=== PATIENT | female | born 1965 | race Caucasian/White ===

== ENCOUNTER 2024-04-24 15:29 | Observation (INO) | payer OTHER ==
[2024-04-24 15:55] LABS: Absolute Neutrophil Ct (ANC) 5.05 x10^3/uL; BASOPHIL % 0.3 %; Basophil (Absolute #) 0.02 x10^3/uL; Eosinophil % 5.3 %; Eosinophil (Absolute #) 0.38 x10^3/uL; Hematocrit 38.7 %; Hemoglobin 12.5 g/dL; IMMATURE GRAN # 0.03 x10^3u/L; IMMATURE GRAN % 0.4 %; Lymphocyte (Absolute #) 1.07 x10^3/uL; Mean Corpuscular Hgb Concent. 32.3 g/dL; Mean Platelet Volume 10.5 fL; Monocytes % 8.4 %; Neutrophil % 70.6 %; Platelet Count 187 x10^3/uL; Red Blood Count 4.16 x10^6/uL; Red Cell Distribution Width 13.3 %; White Blood Count 7.2 x10^3/uL
[2024-04-24] MEDS ORDERED: Sterile H2O 10 ml IJ ONE (15:58)
[2024-04-24] MEDS ORDERED: solu-MEDROL ONE (15:59)
[2024-04-24] MEDS ORDERED: Zithromax 500 MG/ 250 ML NaCl Premix 500 MG/250 ML IVPB IV ONE (15:59)
[2024-04-24] MEDS ORDERED: Sodium Chloride 0.9% 1000 ML 1,000 ML ONE (15:59)
[2024-04-24] MEDS ORDERED: DUONEB 0.5-3 MG/3 ml Neb IH ONE (16:00)
[2024-04-24] MEDS: Sodium Chloride 0.9% 1000 ML 1,000 ML IV STA (16:01)
[2024-04-24] MEDS: DUONEB 0.5-3 MG/3 ml Neb IH ONE (16:01)
[2024-04-24] MEDS: solu-MEDROL 125 MG, Sterile H2O 10 ml 2 ML IV ONE (16:03)
[2024-04-24] MEDS: Zithromax 500 MG/ 250 ML NaCl Premix 500 MG/250 ML IVPB IV STA (16:11)
[2024-04-24 16:17] LABS: ANION GAP 14.2 MEQ/L; BILIRUBIN,TOTAL 0.4 mg/dL; Calcium 9.4 mg/dL; Creatinine 1 0.75 mg/dL; NT PRO BNPII 30.6 pg/mL; Potassium 3.6 mmol/L; Total Protein 6.8 g/dL
[2024-04-24 16:55] LABS: INFLUENZA A NEGATIVE (NEGATIVE); INFLUENZA B NEGATIVE (NEGATIVE); RESPIRATORY SYNCTIAL VIRUS NEGATIVE (NEGATIVE); SARS-CoV-2 Xpert Express NEGATIVE (NEGATIVE)
[2024-04-24] MEDS ORDERED: PROVENTIL 2.5 MG/3 ML NEB IH ONE (16:55)
[2024-04-24] MEDS: PROVENTIL 2.5 MG/3 ML NEB IH ONE (16:56)
--- NOTE | 2024-04-24 18:55 | ERPHSYRPT ---
- History of Present Illness Source: patient Exam Limitations: no limitations Patient Subjective Stated Complaint: Pt c/o of shortness of breath with a cough for 2 days Triage Nursing Assessment: Pt brought to the ER by family, hypertensive, denies pain, pulses normal, skin n/w/d, denies cardiac pain, cough with green/yellow thick sputum, doesn't appear to be in any distress Hx Influenza Vaccination/Date Given: No Hx Pneumococcal Vaccination/Date Given: No <NESHA STEPHENSON - Last Filed: 04/24/24 18:51> <KORY CHAVIRA - Last Filed: 04/24/24 20:35> - History of Present Illness Time Seen by Provider: 04/24/24 15:32 Physician History: Patient is here with shortness of breath and cough for the past 2 days. Patient did recently drive here from [place]. She is here visiting family for Thanksgiving. States that she is having a productive cough, states that it is phlegm. Feels more short of breath. States that it all feels left-sided. Patient is taking PO well. Same number of urinations and defecations. The p atient has no signs of altered mental status, nuchal rigidity, signs of meningitis. The patient is up-to-date on all vaccinations. (NESHA STEPHENSON) Allergies/Adverse Reactions: No Known Drug Allergies Allergy (Verified 04/24/24 15:40) Home Medications: Azelastine HCl 1 spray NS DAILY 04/24/24 [History] Escitalopram Oxalate [Lexapro] 10 mg PO DAILY 04/24/24 [History] Lisinopril 10 mg [Zestril 10 MG] 10 mg PO DAILY 04/24/24 [History] Metformin HCl 500 mg [Glucophage 500 MG] 500 mg PO BIDWM 04/24/24 [History ] Omeprazole 20 mg PO DAILY 04/24/24 [History] Rosuvastatin Calcium 20 mg PO HS 04/24/24 [History] Travel Risk - International Travel Have you traveled outside of the country in past 3 weeks: No - Emerging Infectious Disease Are you exhibiting symptoms associated with any current EIDs: Yes Symptoms: Cough: New Onset, Shortness of Breath <NESHA STEPHENSON - Last Filed: 04/24/24 18:51> - Past Medical History Pertinent Past Medical History: Yes Cardiac History: High Cholesterol, Hypertension Respiratory History: Asthma Endocrine Medical History: Diabetes Type II Musculoskeletal History: Fractures GI Medical History: GERD Psycho-Social History: Anxiety Other Medical History: BROKEN ARM - Past Surgical History Past Surgical History: Yes Musculoskeletal: Orthopedic Surgery Female Surgical History: Hysterectomy Other Surgical History: BART KNEE REPLACEMENT, FOOT - Social History Smoking Status: Never smoker Exposure to second hand smoke: No Drug Use: none - Social Determinants of Health Will the patient participate in the screening: Yes Do you worry about a steady place to live?: No Do you have any problems with any of the following?: No known problems In the past 12 months,have you had to go without utilities?: No Transportation Issues: No Has anyone in your support network made you feel unsafe?: No Have you or anyone in your house had to go without enough: No <NESHA STEPHENSON - Last Filed: 04/24/24 18:51> - Physical Exam SpO2 Interpretation: normal SpO2: 94 <NESHA STEPHENSON - Last Filed: 04/24/24 18:51> - Nursing Vital Signs Nursing Vital Signs: Initial Vital Signs Pulse Rate 87 04/24/24 15:30 Respiratory Rate 16 04/24/24 15:30 Blood Pressure 162/98 04/24/24 15:30 O2 Sat by Pulse Oximetry 91 L 04/24/24 15:30 Pain Scale Pain Intensity 0 - Physical Exam Comments: 04/24/24 18:51 Review of Systems Constitutional: Negative for fever. HENT: Negative for congestion. Respiratory: Shortness of breath Cardiovascular: Left-sided chest pain Gastrointestinal: Negative for abdominal pain. Genitourinary: Negative for dysuria. Musculoskeletal: Negative for back pain. Skin: Negative for rash. Neurological: Negative for headaches. Psychiatric/Behavioral: Negative for behavioral problems. All other systems reviewed and are negative. Physical Exam Vitals signs and nursing note reviewed. Constitutional: Appearance: Patient is well-developed. HENT: Head: Normocephalic and atraumatic. Eyes: Conjunctiva/sclera: Conjunctivae normal. Neck: Musculoskeletal: Normal range of motion. Trachea: No tracheal deviation. Cardiovascular: Rate and Rhythm: Normal rate. Pulmonary: Effort: Wheezes throughout, left-sided crackles Abdominal: Palpations: Abdomen is soft. Musculoskeletal: General: No deformity. Skin: General: Skin is warm and dry. Neurological/ Psychiatric: Mental Status: Mental status, behavior, interaction with environment is appropriate for patient's age and condition (NESHA STEPHENSON) - Course Nursing assessment & vital signs reviewed: Yes EKG Interpreted by Me: Sinus Rhythm (Sinus rhythm, rate of 91, CO interval 143, QRS 96, QTc is 423) <NESHA STEPHENSON - Last Filed: 04/24/24 18:51> Ordered Tests: Active Orders 24 hr Category Date Time Status EKG-ER Only STAT Care 04/24/24 15:40 Active IV Insertion STAT Care 04/24/24 15:40 Active Oxygen-ED Only Nasal Cannula 2 lpm Care 04/24/24 19:31 Active CHEST 1 VIEW (PORTABLE) Stat Exams 04/24/24 15:41 Incomplete CHEST 2 VIEWS (PA AND LAT) Stat Exams 04/24/24 16:42 Taken CHEST WITH CONTRAST [CT] Stat Exams 04/24/24 18:23 Taken CBC W DIFF Stat Lab 04/24/24 15:50 Completed CMP Stat Lab 04/24/24 15:50 Completed NT PRO BNPII Stat Lab 04/24/24 15:50 Completed TROPONIN Q4H Lab 04/24/24 15:50 Completed TROPONIN Q4H Lab 04/24/24 19:20 Completed TROPONIN Q4H Lab 04/24/24 23:45 Ordered Respiratory Therapy Assessment DAILY RT 04/24/24 16:04 Active Medication Summary Discontinued Medications Generic Name Dose Route Start Last Admin Trade Name Freq PRN Reason Stop Dose Admin Albuterol Sulfate 2.5 mg 04/24/24 16:55 04/24/24 16:56 Albuterol Sulfate 2.5 Mg/3 Ml Neb IH 04/24/24 16:56 2.5 mg STAT ONE Administration Albuterol Sulfate Confirm 04/24/24 16:55 Albuterol Sulfate 2.5 Mg/3 Ml Neb Administered 04/24/24 16:56 Dose 2.5 mg IH .STK-MED ONE Albuterol/Ipratropium 3 ml 04/24/24 15:40 04/24/24 16:01 Ipratropium/Albuterol Sulfate 3 Ml Ampul.Neb IH 04/24/24 15:41 3 ml STAT ONE Administration Albuterol/Ipratropium Confirm 04/24/24 16:00 Ipratropium/Albuterol Sulfate 3 Ml Ampul.Neb Administered 04/24/24 16:01 Dose 3 ml IH .STK-MED ONE Methylprednisolone Sodium 0 mg 04/24/24 15:40 04/24/24 16:03 Succinate 125 mg/ Sterile IV 04/24/24 15:41 125 mg Water 2 ml STAT ONE Administration Sodium Chloride 1,000 mls @ 999 mls/hr 04/24/24 15:40 04/24/24 18:42 Sodium Chloride 0.9% 1000 Ml IV 04/24/24 16:40 Infused .Q1H1M STA Infusion Azithromycin 500 mg in 250 mls @ 250 mls/hr 04/24/24 15:40 04/24/24 18:42 Zithromax 500 Mg/ 250 Ml Nacl Premix IV 04/24/24 16:39 Infused STAT STA Infusion Azithromycin Confirm 04/24/24 15:59 Zithromax 500 Mg/ 250 Ml Nacl Premix Administered 04/24/24 16:00 Dose 500 mg in 250 mls @ ud IV .STK-MED ONE Sodium Chloride Confirm 04/24/24 15:59 Sodium Chloride 0.9% 1000 Ml Administered 04/24/24 16:00 Dose 1,000 mls @ ud .ROUTE .STK-MED ONE Methylprednisolone Sodium Succinate Confirm 04/24/24 15:59 Methylprednis Sod Succ 125 Mg/2 Ml Vial Administered 04/24/24 16:00 Dose 125 mg .ROUTE .STK-MED ONE Sterile Water Confirm 04/24/24 15:58 Water For Injection,Sterile 10 Ml Vial Administered 04/24/24 15:59 Dose 10 ml IJ .STK-MED ONE Lab/Rad Data: Laboratory Result Diagrams 04/24/24 15:50 04/24/24 15:50 Laboratory Results 04/24/24 04/24/24 04/24/24 Range/Units 19:20 15:52 15:50 WBC x10^3/uL RBC x10^6/uL Hgb g/dL Hct % MCV fL MCH pg MCHC g/dL RDW % Plt Count x10^3/uL MPV fL Gran % % Immature Gran % (Auto) % Nucleat RBC Rel Count % Eos # (Auto) x10^3/uL Immature Gran # (Auto) x10^3u/L Absolute Lymphs (auto) x10^3/uL Absolute Monos (auto) x10^3/uL Absolute Nucleated RBC x10^3u/L Lymphocytes % % Monocytes % % Eosinophils % % Basophils % % Absolute Granulocytes x10^3/uL Basophils # x10^3/uL Sodium (135 - 145) mmol/L Potassium (3.5 - 5.1) mmol/L Chloride (98 - 107) mmol/L Carbon Dioxide (22 - 30) mmol/L Anion Gap (5 - 15) MEQ/L BUN (7 - 17) mg/dL Creatinine (0.52 - 1.04) mg/dL Estimated GFR ML/MIN Glucose (74 - 106) mg/dL Calcium (8.4 - 10.2) mg/dL Total Bilirubin (0.2 - 1.3) mg/dL AST (14 - 36) U/L ALT (0 - 35) U/L Alkaline Phosphatase (38 - 126) U/L Troponin I < 0.012 < 0.012 ng/mL NT-Pro-B Natriuret Pep pg/mL Serum Total Protein (6.3 - 8.2) g/dL Albumin (3.5 - 5.0) g/dL Influenza Type A Ag NEGATIVE (NEGATIVE) Influenza Type B Ag NEGATIVE (NEGATIVE) RSV (PCR) NEGATIVE (NEGATIVE) SARS-CoV-2 (PCR) NEGATIVE (NEGATIVE) 04/24/24 04/24/24 Range/Units 15:50 15:50 WBC 7.2 x10^3/uL RBC 4.16 x10^6/uL Hgb 12.5 g/dL Hct 38.7 % MCV 93.0 fL MCH 30.0 pg MCHC 32.3 g/dL RDW 13.3 % Plt Count 187 x10^3/uL MPV 10.5 fL Gran % 70.6 % Immature Gran % (Auto) 0.4 % Nucleat RBC Rel Count 0.0 % Eos # (Auto) 0.38 x10^3/uL Immature Gran # (Auto) 0.03 x10^3u/L Absolute Lymphs (auto) 1.07 x10^3/uL Absolute Monos (auto) 0.60 x10^3/uL Absolute Nucleated RBC 0.00 x10^3u/L Lymphocytes % 15.0 % Monocytes % 8.4 % Eosinophils % 5.3 % Basophils % 0.3 % Absolute Granulocytes 5.05 x10^3/uL Basophils # 0.02 x10^3/uL Sodium 142 (135 - 145) mmol/L Potassium 3.6 (3.5 - 5.1) mmol/L Chloride 108 (98 - 107) mmol/L Carbon Dioxide 24 (22 - 30) mmol/L Anion Gap 14.2 (5 - 15) MEQ/L BUN 18 (7 - 17) mg/dL Creatinine 0.75 (0.52 - 1.04) mg/dL Estimated GFR 93.0 ML/MIN Glucose 148 (74 - 106) mg/dL Calcium 9.4 (8.4 - 10.2) mg/dL Total Bilirubin 0.40 (0.2 - 1.3) mg/dL AST 28 (14 - 36) U/L ALT 45 (0 - 35) U/L Alkaline Phosphatase 87 (38 - 126) U/L Troponin I ng/mL NT-Pro-B Natriuret Pep 30.6 pg/mL Serum Total Protein 6.8 (6.3 - 8.2) g/dL Albumin 4.0 (3.5 - 5.0) g/dL Influenza Type A Ag (NEGATIVE) Influenza Type B Ag (NEGATIVE) RSV (PCR) (NEGATIVE) SARS-CoV-2 (PCR) (NEGATIVE) - Progress Progress: improved Discussed with : Other (Dr. Orta) Will see patient in: hospital (full admit) Counseled pt/family regarding: lab results, diagnosis, need for follow-up, rad results <NESHA STEPHENSON - Last Filed: 04/24/24 18:51> <KORY CHAVIRA - Last Filed: 04/24/24 20:35> - Progress Progress Note: 04/24/24 18:52 Differential diagnosis includes: PNA, STEMI, NSTEMI, other infection, musculoskeletal pain, pneumothorax - We'll obtain basic labs, fluids, EKG, troponin, chest x-ray - EKG shows no ST changes - my read - O2 saturations did drop to 91%. Placed on 2 L. - CXR demonstrates left-sided pneumonia on my read Patient most likely needs to be admitted for left-sided pneumonia, dropping her O2 sats. Patient has received azithromycin, 2 breathing treatments, steroids. I did discuss over the phone with on-call physician, Dr. Orta. She did accept the patient to her service. However she is concerned the patient did not have an elevated white blood cell count and had recently drove from [place]. Therefore she did request a CTA prior to admission. I feel this is very reasonable. CTA currently pending. Transfer of care to Dr. Chavira at 7 PM. He will follow-up on CTA. He will place bed request after this if normal. Otherwise he will treat appropriately based on results of CTA. (NESHA STEPHENSON) 04/24/24 20:31 This patient underwent a CT scan of the chest with contrast arrives to follow-up with per Dr. Stephenson. The CT scan of the chest with contrast was interpreted by the radiologist. The impression states poor opacification limits pulmonary embolism exam. No obvious central pulmonary emboli present. Lingular pneumonia without effusion is present. There is evidence of fatty liver. (KORY CHAVIRA) Medical Desision Making - Discussion of managment Care discussed with:: hospitalist (Per Dr. Stephenson he had already spoken to the hospitalist and the hospitalist accepts admission but wanted a CT scan of the chest performed) Agreed on:: decision to admit Will see patient: in hospital - Diagnostic Testing Diagnostic test were ordered, analyzed, and reviewed by me: Yes Radiological Interpretation: Reviewed by me, Teleradiologist Report - Risk of complications The pt has a high risk of morbidity or mortality based on: Decision regarding hospitilization or escalation of hosp level of care <KORY CHAVIRA - Last Filed: 04/24/24 20:35> - Departure Departure Disposition: Observation Critical Care Time: No <NESHA STEPHENSON - Last Filed: 04/24/24 18:51> - Departure Departure Disposition: Observation Critical Care Time: No <KORY CHAVIRA - Last Filed: 04/24/24 20:35> - Departure Clinical Impression: Community acquired pneumonia Condition: Stable Referrals: DOCTOR,NO FAMILY [Primary Care Provider] - Follow up/PCP as directed
[2024-04-24] MEDS: PROVENTIL 2.5 MG/3 ML NEB IH PRN (21:24)
--- NOTE | 2024-04-24 21:43 | PCM.HP ---
History of Present Illness - Chief Complaint Chief Complaint: pneumonia History of Present Illness: is a 58 year old female with PMH of HTN, asthma who presents with few days of malaise, cough, congestion, runny nose. 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 States her cough has continued to get worse with increased WOB. No fever, chest pain, nausea, vomiting, diarrhea. In the ED, CXR was c/f developing left sided PNA, CTA negative for PE. RVP was negative. - Review of Systems Constitutional: No Fever, No Chills Eyes: No Symptoms Ears, Nose, & Throat: No Symptoms Respiratory: No Cough, No Short Of Breath Cardiac: No Chest Pain, No Edema, No Syncope Abdominal/Gastrointestinal: No Abdominal Pain, No Nausea, No Vomiting, No Diarrhea Genitourinary Symptoms: No Dysuria Musculoskeletal: No Back Pain, No Neck Pain Skin: No Rash Neurological: No Dizziness, No Focal Weakness, No Sensory Changes Psychological: No Symptoms Endocrine: No Symptoms Hematologic/Lymphatic: No Symptoms Immunological/Allergic: No Symptoms Medications & Allergies Home Medications: Home Medication List Azelastine HCl 1 spray NS DAILY 04/24/24 [History Confirmed 04/24/24] Escitalopram Oxalate [Lexapro] 10 mg PO DAILY 04/24/24 [History Confirmed 04/24/24] Lisinopril 10 mg [Zestril 10 MG] 10 mg PO DAILY 04/24/24 [History Confirmed 04/24/24] Metformin HCl 500 mg [Glucophage 500 MG] 500 mg PO BIDWM 04/24/24 [History Confirmed 04/24/24] Omeprazole 20 mg PO DAILY 04/24/24 [History Confirmed 04/24/24] Rosuvastatin Calcium 20 mg PO HS 04/24/24 [History Confirmed 04/24/24] Allergies/Adverse Reactions: Allergies Allergy/AdvReac Type Severity Reaction Status Date / Time No Known Drug Allergies Allergy Verified 04/24/24 15:40 - Past Medical History Past Medical History: Yes Cardiac History: High Cholesterol, Hypertension Respiratory History: Asthma Endocrine Medical History: Diabetes Type II Musculoskelatal History: Fractures GI Medical History: GERD Pyscho-Social History: Anxiety Comment: BROKEN ARM - Past Surgical History Past Surgical History: Yes Musculskeletal Surgical Hx: Orthopedic Surgery Female Surgical History: Hysterectomy Other Surgical History: BART KNEE REPLACEMENT, FOOT - Social History Smoking Status: Never smoker Exposure to second hand smoke: No Alcohol: Weekly Drug Use: none - Social Determinants of Health Will the patient participate in the screening: Yes Do you worry about a steady place to live?: No Do you have any problems with any of the following?: No known problems In the past 12 months,have you had to go without utilities?: No Have you or anyone in your house had to go without enough: No Transportation Issues: No Has anyone in your support network made you feel unsafe?: No Does the patient want assistance with any of the above?: No - Physical Exam Vital Signs: Vital Signs - 24 hr Temp Pulse Resp BP BP Pulse Ox 04/24/24 21:24 85 18 97 04/24/24 20:50 98.2 F 88 16 160/84 95 04/24/24 20:30 82 140/87 90 L 04/24/24 20:00 88 151/85 91 L 04/24/24 19:30 95 H 159/107 95 04/24/24 18:54 94 L 04/24/24 18:30 88 21 155/85 94 L 04/24/24 18:00 87 22 155/85 92 L 04/24/24 17:30 91 H 18 161/91 93 L 04/24/24 17:23 88 10 L 159/93 94 L 04/24/24 17:00 83 21 151/91 99 04/24/24 16:59 85 20 97 04/24/24 16:05 95 22 94 04/24/24 16:00 85 21 145/96 91 L 04/24/24 15:33 97.7 F 106 20 162/98 93 04/24/24 15:30 87 16 162/98 91 L General Appearance: no apparent distress, alert Neurologic Exam: alert, oriented x 3, cooperative, normal mood/affect, nml cerebellar function, nml station & gait, sensation nml, No motor deficits Eye Exam: PERRL/EOMI, eyes nml inspection Ears, Nose, Throat Exam: normal ENT inspection, TMs normal, pharynx normal, moist mucous membranes Neck Exam: normal inspection, non-tender, supple, full range of motion Respiratory Exam: normal breath sounds, lungs clear, No respiratory distress Cardiovascular Exam: regular rate/rhythm, normal heart sounds, normal peripheral pulses Gastrointestinal/Abdomen Exam: soft, normal bowel sounds, No tenderness, No mass Back Exam: normal inspection, normal range of motion, No CVA tenderness, No vertebral tenderness Extremity Exam: normal inspection, normal range of motion, pelvis stable Skin Exam: normal color, warm, dry, No rash Lymphatic Exam: No adenopathy Results - Labs Lab/Micro Results: Lab Results-Last 24 Hours 04/24/24 04/24/24 04/24/24 Range/Units 15:50 15:50 15:50 WBC 7.2 x10^3/uL RBC 4.16 x10^6/uL Hgb 12.5 g/dL Hct 38.7 % MCV 93.0 fL MCH 30.0 pg MCHC 32.3 g/dL RDW 13.3 % Plt Count 187 x10^3/uL MPV 10.5 fL Gran % 70.6 % Immature Gran % (Auto) 0.4 % Nucleat RBC Rel Count 0.0 % Eos # (Auto) 0.38 x10^3/uL Immature Gran # (Auto) 0.03 x10^3u/L Absolute Lymphs (auto) 1.07 x10^3/uL Absolute Monos (auto) 0.60 x10^3/uL Absolute Nucleated RBC 0.00 x10^3u/L Lymphocytes % 15.0 % Monocytes % 8.4 % Eosinophils % 5.3 % Basophils % 0.3 % Absolute Granulocytes 5.05 x10^3/uL Basophils # 0.02 x10^3/uL Sodium 142 (135 - 145) mmol/L Potassium 3.6 (3.5 - 5.1) mmol/L Chloride 108 (98 - 107) mmol/L Carbon Dioxide 24 (22 - 30) mmol/L Anion Gap 14.2 (5 - 15) MEQ/L BUN 18 (7 - 17) mg/dL Creatinine 0.75 (0.52 - 1.04) mg/dL Estimated GFR 93.0 ML/MIN Glucose 148 (74 - 106) mg/dL Calcium 9.4 (8.4 - 10.2) mg/dL Total Bilirubin 0.40 (0.2 - 1.3) mg/dL AST 28 (14 - 36) U/L ALT 45 (0 - 35) U/L Alkaline Phosphatase 87 (38 - 126) U/L Troponin I < 0.012 ng/mL NT-Pro-B Natriuret Pep 30.6 pg/mL Serum Total Protein 6.8 (6.3 - 8.2) g/dL Albumin 4.0 (3.5 - 5.0) g/dL Influenza Type A Ag (NEGATIVE) Influenza Type B Ag (NEGATIVE) RSV (PCR) (NEGATIVE) SARS-CoV-2 (PCR) (NEGATIVE) 04/24/24 04/24/24 Range/Units 15:52 19:20 WBC x10^3/uL RBC x10^6/uL Hgb g/dL Hct % MCV fL MCH pg MCHC g/dL RDW % Plt Count x10^3/uL MPV fL Gran % % Immature Gran % (Auto) % Nucleat RBC Rel Count % Eos # (Auto) x10^3/uL Immature Gran # (Auto) x10^3u/L Absolute Lymphs (auto) x10^3/uL Absolute Monos (auto) x10^3/uL Absolute Nucleated RBC x10^3u/L Lymphocytes % % Monocytes % % Eosinophils % % Basophils % % Absolute Granulocytes x10^3/uL Basophils # x10^3/uL Sodium (135 - 145) mmol/L Potassium (3.5 - 5.1) mmol/L Chloride (98 - 107) mmol/L Carbon Dioxide (22 - 30) mmol/L Anion Gap (5 - 15) MEQ/L BUN (7 - 17) mg/dL Creatinine (0.52 - 1.04) mg/dL Estimated GFR ML/MIN Glucose (74 - 106) mg/dL Calcium (8.4 - 10.2) mg/dL Total Bilirubin (0.2 - 1.3) mg/dL AST (14 - 36) U/L ALT (0 - 35) U/L Alkaline Phosphatase (38 - 126) U/L Troponin I < 0.012 ng/mL NT-Pro-B Natriuret Pep pg/mL Serum Total Protein (6.3 - 8.2) g/dL Albumin (3.5 - 5.0) g/dL Influenza Type A Ag NEGATIVE (NEGATIVE) Influenza Type B Ag NEGATIVE (NEGATIVE) RSV (PCR) NEGATIVE (NEGATIVE) SARS-CoV-2 (PCR) NEGATIVE (NEGATIVE) - Radiology Impressions Radiology Exams & Impressions: Radiology Procedures Category Date Time Status CHEST 1 VIEW (PORTABLE) Stat Exams 04/24/24 15:41 Incomplete CHEST 2 VIEWS (PA AND LAT) Stat Exams 04/24/24 16:42 Taken CHEST WITH CONTRAST [CT] Stat Exams 04/24/24 18:23 Taken - Other Procedures and Tests Respiratory Therapy 04/24/24 16:04 Respiratory Therapy Assessment DAILY 04/24/24 21:02 Incentive Spirometry UD Oxygen Nasal Cannula 2 lpm Assessment/Plan (1) Community acquired pneumonia Current Visit: Yes Status: Acute Assessment & Plan: Given azithro in the ED, will switch to doxycycline O2 as needed Duonebs as needed CTA negative for PE Code(s): J18.9 - PNEUMONIA, UNSPECIFIED ORGANISM Telemedicine Encounter - Telemedicine Encounter Telemedicine Encounter: "The entirety of this encounter was performed via Telemedicine" This visit was performed using real-time audio and video connection between my location and thepatients locationwith the assistance of a surrogateat the patients location. Written or verbal consent was obtained from the patient/guardian to perform this visit [facility]. Any patient questions regarding the telemedicine interaction were answered.
[2024-04-24] MEDS ORDERED: NON-FORMULARY ITEM (Rosuvastatin Calcium [Rosuvastatin Calcium] 20 MG Tablet) PO SCH (22:00)
[2024-04-24] MEDS: Vibramycin 100 MG PO SCH (22:08)
[2024-04-24] MEDS: ZOCOR 20MG PO SCH (22:09)
--- NOTE | 2024-04-25 05:10 | PCM.NOTE ---
Date and Time: 04/25/24 0501 Subjective Assessment: HPI: is a 58 year old female with PMH of HTN, asthma who presented to ED 04/24/24 with few days of malaise, cough, congestion, runny nose. 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 States her cough has continued to get worse with increased WOB. No fever, chest pain, nausea, vomi ting, diarrhea. In the ED, CXR was c/f developing left sided PNA, CTA negative for PE. RVP was negative. 04/25/24: Met with patient bedside. Endorsing continued shortness of breath and productive cough with rust colored sputum. Afebrile overnight. Still requiring 2L of oxygen. Plan to wean oxygen and continue IV abx/steroid. Most likely can discharge tomorrow pending treatment response. Denies fever, cp, abdominal pain, TERRELL, dizziness, N/V/D. - Review of Systems Constitutional: No Symptoms Eyes: No Symptoms Ears, Nose, & Throat: No Symptoms Respiratory: Cough, Short Of Breath Cardiac: No Symptoms Abdominal/Gastrointestinal: No Symptoms Genitourinary Symptoms: No Symptoms Musculoskeletal: No Symptoms Skin: No Symptoms Neurological: No Symptoms Psychological: No Symptoms Endocrine: No Symptoms Hematologic/Lymphatic: No Symptoms Immunological/Allergic: No Symptoms Objective Exam General Appearance: no apparent distress Neurologic Exam: alert, oriented x 3, cooperative Skin Exam: normal color Eye Exam: PERRL Ears, Nose, Throat Exam: normal ENT inspection Neck Exam: normal inspection Respiratory Exam: crackles/rales Cardiovascular Exam: regular rate/rhythm, normal heart sounds Gastrointestinal/Abdomen Exam: soft, normal bowel sounds Extremity Exam: normal inspection Back Exam: normal inspection Pelvic Exam: deferred Rectal Exam: deferred Objective Data Vital Signs: Vital Signs - 24 hr Temp Pulse Resp BP BP Pulse Ox 04/25/24 04:00 98.4 F 88 16 131/79 96 04/25/24 00:00 96.5 F 89 16 126/66 91 L 04/24/24 21:24 85 18 97 04/24/24 20:50 98.2 F 88 16 160/84 95 04/24/24 20:30 82 140/87 90 L 04/24/24 20:00 88 151/85 91 L 04/24/24 19:30 95 H 159/107 95 04/24/24 18:54 94 L 04/24/24 18:30 88 21 155/85 94 L 04/24/24 18:00 87 22 155/85 92 L 04/24/24 17:30 91 H 18 161/91 93 L 04/24/24 17:23 88 10 L 159/93 94 L 04/24/24 17:00 83 21 151/91 99 04/24/24 16:59 85 20 97 04/24/24 16:05 95 22 94 04/24/24 16:00 85 21 145/96 91 L 04/24/24 15:33 97.7 F 106 20 162/98 93 04/24/24 15:30 87 16 162/98 91 L Pain Assessment - Last Documented Pain Intensity 0 Intake and Output: Intake & Output 04/22/24 04/23/24 04/24/24 04/25/24 11:59 11:59 11:59 11:59 Intake Total 0 Balance 0 Weight 96.2 kg Lab Results: Lab Results-Last 24 Hours 04/24/24 04/24/24 04/24/24 Range/Units 15:50 15:50 15:50 WBC 7.2 x10^3/uL RBC 4.16 x10^6/uL Hgb 12.5 g/dL Hct 38.7 % MCV 93.0 fL MCH 30.0 pg MCHC 32.3 g/dL RDW 13.3 % Plt Count 187 x10^3/uL MPV 10.5 fL Gran % 70.6 % Immature Gran % (Auto) 0.4 % Nucleat RBC Rel Count 0.0 % Eos # (Auto) 0.38 x10^3/uL Immature Gran # (Auto) 0.03 x10^3u/L Absolute Lymphs (auto) 1.07 x10^3/uL Absolute Monos (auto) 0.60 x10^3/uL Absolute Nucleated RBC 0.00 x10^3u/L Lymphocytes % 15.0 % Monocytes % 8.4 % Eosinophils % 5.3 % Basophils % 0.3 % Absolute Granulocytes 5.05 x10^3/uL Basophils # 0.02 x10^3/uL Sodium 142 (135 - 145) mmol/L Potassium 3.6 (3.5 - 5.1) mmol/L Chloride 108 (98 - 107) mmol/L Carbon Dioxide 24 (22 - 30) mmol/L Anion Gap 14.2 (5 - 15) MEQ/L BUN 18 (7 - 17) mg/dL Creatinine 0.75 (0.52 - 1.04) mg/dL Estimated GFR 93.0 ML/MIN Glucose 148 (74 - 106) mg/dL Calcium 9.4 (8.4 - 10.2) mg/dL Total Bilirubin 0.40 (0.2 - 1.3) mg/dL AST 28 (14 - 36) U/L ALT 45 (0 - 35) U/L Alkaline Phosphatase 87 (38 - 126) U/L Troponin I < 0.012 ng/mL NT-Pro-B Natriuret Pep 30.6 pg/mL Serum Total Protein 6.8 (6.3 - 8.2) g/dL Albumin 4.0 (3.5 - 5.0) g/dL Influenza Type A Ag (NEGATIVE) Influenza Type B Ag (NEGATIVE) RSV (PCR) (NEGATIVE) SARS-CoV-2 (PCR) (NEGATIVE) 04/24/24 04/24/24 Range/Units 15:52 19:20 WBC x10^3/uL RBC x10^6/uL Hgb g/dL Hct % MCV fL MCH pg MCHC g/dL RDW % Plt Count x10^3/uL MPV fL Gran % % Immature Gran % (Auto) % Nucleat RBC Rel Count % Eos # (Auto) x10^3/uL Immature Gran # (Auto) x10^3u/L Absolute Lymphs (auto) x10^3/uL Absolute Monos (auto) x10^3/uL Absolute Nucleated RBC x10^3u/L Lymphocytes % % Monocytes % % Eosinophils % % Basophils % % Absolute Granulocytes x10^3/uL Basophils # x10^3/uL Sodium (135 - 145) mmol/L Potassium (3.5 - 5.1) mmol/L Chloride (98 - 107) mmol/L Carbon Dioxide (22 - 30) mmol/L Anion Gap (5 - 15) MEQ/L BUN (7 - 17) mg/dL Creatinine (0.52 - 1.04) mg/dL Estimated GFR ML/MIN Glucose (74 - 106) mg/dL Calcium (8.4 - 10.2) mg/dL Total Bilirubin (0.2 - 1.3) mg/dL AST (14 - 36) U/L ALT (0 - 35) U/L Alkaline Phosphatase (38 - 126) U/L Troponin I < 0.012 ng/mL NT-Pro-B Natriuret Pep pg/mL Serum Total Protein (6.3 - 8.2) g/dL Albumin (3.5 - 5.0) g/dL Influenza Type A Ag NEGATIVE (NEGATIVE) Influenza Type B Ag NEGATIVE (NEGATIVE) RSV (PCR) NEGATIVE (NEGATIVE) SARS-CoV-2 (PCR) NEGATIVE (NEGATIVE) Radiology Exams: Radiology Procedures Category Date Time Status CHEST 1 VIEW (PORTABLE) Stat Exams 04/24/24 15:41 Incomplete CHEST 2 VIEWS (PA AND LAT) Stat Exams 04/24/24 16:42 Taken CHEST WITH CONTRAST [CT] Stat Exams 04/24/24 18:23 Taken Assessment/Plan (1) Community acquired pneumonia Current Visit: Yes Status: Acute Assessment & Plan: -Supplemental oxygen as needed with goal spo2 > 92% -Ceftriaxone/doxycycyline -Prednisone -Admission labs reviewed- unremarkable -resp viral panel negative -CTA consistent with pneumonia - no PE Code(s): J18.9 - PNEUMONIA, UNSPECIFIED ORGANISM (2) HLD (hyperlipidemia) Current Visit: Yes Status: Acute Assessment & Plan: -continue simvastatin Code(s): E78.5 - HYPERLIPIDEMIA, UNSPECIFIED (3) Type 2 diabetes mellitus Current Visit: Yes Status: Acute Assessment & Plan: -SSI -ADA diet -accuchecks -Hold metformin -A1c (4) GERD (gastroesophageal reflux disease) Current Visit: Yes Status: Acute Assessment & Plan: -continue omeprazole Code(s): K21.9 - GASTRO-ESOPHAGEAL REFLUX DISEASE WITHOUT ESOPHAGITIS (5) Anxiety Current Visit: Yes Status: Acute Assessment & Plan: -Continue lexapro VTE: SCD PPI: protonix Dispo: 1-2 days Code status: full Code(s): F41.9 - ANXIETY DISORDER, UNSPECIFIED
[2024-04-25 05:18] LABS: Absolute Neutrophil Ct (ANC) 9.49 x10^3/uL (1.56-6.13); BASOPHIL % 0.1 % (0.1-1.2); Basophil (Absolute #) 0.01 x10^3/uL (0.01-0.08); Eosinophil (Absolute #) 0 x10^3/uL (0.04-0.36); Hematocrit 38.7 % (34.1-44.9); Hemoglobin 12.5 g/dL (11.2-15.7); IMMATURE GRAN # 0.06 x10^3u/L (0.001-0.031); IMMATURE GRAN % 0.6 % (0.001-0.429); Lymphocyte (Absolute #) 0.65 x10^3/uL (1.18-3.74); Lymphocytes % 6.1 % (19.3-51.7); Mean Cell Volume 93.9 fL (79.4-94.8); Mean Corpuscular Hemoglobin 30.3 pg (25.6-32.2); Mean Corpuscular Hgb Concent. 32.3 g/dL (32.2-35.5); Mean Platelet Volume 10.7 fL (9.4-12.3); Monocyte (Absolute #) 0.47 x10^3/uL (0.24-0.86); Monocytes % 4.4 % (4.7-12.5); Neutrophil % 88.8 % (34.0-71.1); Platelet Count 206 x10^3/uL (182-369); Red Blood Count 4.12 x10^6/uL (3.93-5.22); Red Cell Distribution Width 13.2 % (11.7-14.4); White Blood Count 10.7 x10^3/uL (3.98-10.04)
[2024-04-25 05:48] LABS: ALBUMIN 4.2 g/dL (3.5-5.0); ANION GAP 14.9 MEQ/L (5-15); BILIRUBIN,TOTAL 0.3 mg/dL (0.2-1.3); Calcium 9.5 mg/dL (8.4-10.2); Creatinine 1 0.62 mg/dL (0.52-1.04); EST GLOMERULAR FILTRATION RATE 104.5 ML/MIN; Potassium 3.9 mmol/L (3.5-5.1); Total Protein 7.3 g/dL (6.3-8.2)
[2024-04-25] MEDS: ASTELIN NASAL NS SCH (09:50)
[2024-04-25] MEDS: Lexapro PO SCH (09:51)
[2024-04-25] MEDS: Zestril 10 MG PO SCH (09:51)
[2024-04-25] MEDS: Protonix 40MG Tablet PO SCH (09:51)
[2024-04-25] MEDS: TYLENOL 325 MG PO PRN (09:51)
[2024-04-25] MEDS ORDERED: PUMP NS SCH (10:00)
[2024-04-25] MEDS ORDERED: AZELASTINE HCL 205.5 MCG/0.137 ML NS SCH (10:00)
[2024-04-25] MEDS ORDERED: NON-FORMULARY ITEM (Omeprazole [Omeprazole] 20 MG Capsule.Dr) PO SCH (10:00)
[2024-04-25] MEDS ORDERED: Vibramycin 100 MG PO SCH (10:00)
--- NOTE | 2024-04-25 10:35 | XRAY ---
Indication: Cough. Short of breath. Comparison: None PA/lateral chest demonstrates lingula pneumonic infiltrate. Remaining heart, right lung, and bony thorax normal.
--- NOTE | 2024-04-25 10:37 | XRAY ---
Indication: Cough. Short of breath. Multiple contiguous axial images obtained through the chest using 80 cc Isovue 370 contrast and PE protocol. Comparison: None Suboptimal opacification pulmonary arteries limits evaluation for pulmonary embolus. No obvious pulmonary embolus. Heart not enlarged. Aorta is normal course and caliber. No pathologic mediastinal/hilar lymphadenopathy. Lungs demonstrates patchy lingula consolidating/nonconsolidating airspace disease. Minimal bilateral dependent atelectasis. Bony thorax intact. Limited upper abdomen demonstrates fatty liver. Impression: 1. Pulmonary embolus evaluation limited due to suboptimal opacification. No obvious pulmonary embolus. 2. Lingula airspace disease. 3. Incidental fatty liver.
[2024-04-25] MEDS ORDERED: HUMALOG SQ PRN (10:44)
[2024-04-25] MEDS: Robitussin AC Syrup Unit Dose Cup PO PRN (11:22)
[2024-04-25] MEDS: DELTASONE 20 MG PO SCH (11:22)
[2024-04-25] MEDS: ROCEPHIN 1 GM / 100 ML NaCl 1 GM/100 ML IVPB IV SCH (11:23)
[2024-04-25] MEDS: Vibramycin 100 MG PO SCH (21:43)
[2024-04-26 03:51] VITALS: RESP 16
--- NOTE | 2024-04-26 04:52 | PCM.DS ---
Discharge Summary Date of Admission: 04/24/24 20:36 Date of Discharge: 04/26/24 Admitting Physician: ROSALIND MANCILLA MD Primary Care Provider: NO FAMILY DOCTOR Allergies Allergies No Known Drug Allergies Allergy (Verified 04/24/24 15:40) Hospital Summary - Hospital Course Hospital Course: HPI: is a 58 year old female with PMH of HTN, asthma who presented to ED 04/24/24 with few days of malaise, cough, congestion, runny nose. 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 States her cough has continued to get worse with increased WOB. No fever, chest pain, nausea, vomiting, diarrhea. In the ED, CXR was c/f developing left sided PNA, CTA negative for PE. RVP was negative. Dyspnea improved. Patient on RA. Can continue on oral abx. Medically stable for discharge. Discharge Note New Diagnosis:Pneumonia New Medications:Cefuroxime/doxycycline/ albuterol inh per pt request/cough syrup Follow Up: PCP Latest Assessment & Plan (1) Community acquired pneumonia Current Visit: Yes Status: Acute Assessment & Plan: -Supplemental oxygen as needed with goal spo2 > 92% -Ceftriaxone/doxycycyline -Prednisone -Admission labs reviewed- unremarkable -resp viral panel negative -CTA consistent with pneumonia - no PE Code(s): J18.9 - PNEUMONIA, UNSPECIFIED ORGANISM (2) HLD (hyperlipidemia) Current Visit: Yes Status: Acute Assessment & Plan: -continue simvastatin Code(s): E78.5 - HYPERLIPIDEMIA, UNSPECIFIED (3) Type 2 diabetes mellitus Current Visit: Yes Status: Acute Assessment & Plan: -SSI -ADA diet -accuchecks -Hold metformin -A1c (4) GERD (gastroesophageal reflux disease) Current Visit: Yes Status: Acute Assessment & Plan: -continue omeprazole Code(s): K21.9 - GASTRO-ESOPHAGEAL REFLUX DISEASE WITHOUT ESOPHAGITIS (5) Anxiety Current Visit: Yes Status: Acute Assessment & Plan: -Continue lexapro VTE: SCD PPI: protonix Dispo: 1-2 days Code status: full I spent 35 minutes [id number] with the patient on the day of discharge perform ing discharge exam, discussing hospital stay and discharge instructions with patient and caregivers, preparation of discharge records, prescriptions & referral forms and addressing any questions/concerns the patient had as documented above. - Vitals & Intake/Output Vital Signs: Vital Signs Temperature 97.7 F 04/26/24 03:50 Pulse Rate 68 04/26/24 03:50 Respiratory Rate 16 04/26/24 03:50 Blood Pressure 132/85 04/26/24 03:50 O2 Sat by Pulse Oximetry 97 04/26/24 03:50 Intake & Output: Intake & Output 04/23/24 04/24/24 04/25/24 04/26/24 11:59 11:59 11:59 11:59 Intake Total 480 1240 Balance 480 1240 Weight 96.2 kg - Lab Result Diagrams: 04/26/24 05:04 04/26/24 05:04 Lab Results-Last 24 Hrs: Lab Results-Last 24 Hours 04/25/24 04/25/24 04/25/24 Range/Units 05:10 05:10 05:10 WBC 10.7 H (3.98-10.04) x10^3/uL RBC 4.12 (3.93-5.22) x10^6/uL Hgb 12.5 (11.2-15.7) g/dL Hct 38.7 (34.1-44.9) % MCV 93.9 (79.4-94.8) fL MCH 30.3 (25.6-32.2) pg MCHC 32.3 (32.2-35.5) g/dL RDW 13.2 (11.7-14.4) % Plt Count 206 (182-369) x10^3/uL MPV 10.7 (9.4-12.3) fL Gran % 88.8 H (34.0-71.1) % Immature Gran % (Auto) 0.6 H (0.001-0.429) % Nucleat RBC Rel Count 0.0 (0.00-0.2) % Eos # (Auto) 0 L (0.04-0.36) x10^3/uL Immature Gran # (Auto) 0.06 H (0.001-0.031) x10^3u/L Absolute Lymphs (auto) 0.65 L (1.18-3.74) x10^3/uL Absolute Monos (auto) 0.47 (0.24-0.86) x10^3/uL Absolute Nucleated RBC 0.00 (0.00-0.012) x10^3u/L Lymphocytes % 6.1 L (19.3-51.7) % Monocytes % 4.4 L (4.7-12.5) % Eosinophils % 0.0 L (0.7-5.8) % Basophils % 0.1 (0.1-1.2) % Absolute Granulocytes 9.49 H (1.56-6.13) x10^3/uL Basophils # 0.01 (0.01-0.08) x10^3/uL Sodium 143 (135-145) mmol/L Potassium 3.9 (3.5-5.1) mmol/L Chloride 109 H (98-107) mmol/L Carbon Dioxide 23 (22-30) mmol/L Anion Gap 14.9 (5-15) MEQ/L BUN 14 (7-17) mg/dL Creatinine 0.62 (0.52-1.04) mg/dL Estimated GFR 104.5 ML/MIN Glucose 151 H (74-106) mg/dL POC Glucometer (74 to 106) mg/dL Hemoglobin A1c 5.84 (4.5-6.0) % Calcium 9.5 (8.4-10.2) mg/dL Total Bilirubin 0.30 (0.2-1.3) mg/dL AST 28 (14-36) U/L ALT 46 H (0-35) U/L Alkaline Phosphatase 78 (38-126) U/L NT-Pro-B Natriuret Pep 104 (<300) pg/mL Serum Total Protein 7.3 (6.3-8.2) g/dL Albumin 4.2 (3.5-5.0) g/dL 04/25/24 04/25/24 04/25/24 Range/Units 11:39 16:29 21:20 WBC (3.98-10.04) x10^3/uL RBC (3.93-5.22) x10^6/uL Hgb (11.2-15.7) g/dL Hct (34.1-44.9) % MCV (79.4-94.8) fL MCH (25.6-32.2) pg MCHC (32.2-35.5) g/dL RDW (11.7-14.4) % Plt Count (182-369) x10^3/uL MPV (9.4-12.3) fL Gran % (34.0-71.1) % Immature Gran % (Auto) (0.001-0.429) % Nucleat RBC Rel Count (0.00-0.2) % Eos # (Auto) (0.04-0.36) x10^3/uL Immature Gran # (Auto) (0.001-0.031) x10^3u/L Absolute Lymphs (auto) (1.18-3.74) x10^3/uL Absolute Monos (auto) (0.24-0.86) x10^3/uL Absolute Nucleated RBC (0.00-0.012) x10^3u/L Lymphocytes % (19.3-51.7) % Monocytes % (4.7-12.5) % Eosinophils % (0.7-5.8) % Basophils % (0.1-1.2) % Absolute Granulocytes (1.56-6.13) x10^3/uL Basophils # (0.01-0.08) x10^3/uL Sodium (135-145) mmol/L Potassium (3.5-5.1) mmol/L Chloride (98-107) mmol/L Carbon Dioxide (22-30) mmol/L Anion Gap (5-15) MEQ/L BUN (7-17) mg/dL Creatinine (0.52-1.04) mg/dL Estimated GFR ML/MIN Glucose (74-106) mg/dL POC Glucometer 143 H 148 H 144 H (74 to 106) mg/dL Hemoglobin A1c (4.5-6.0) % Calcium (8.4-10.2) mg/dL Total Bilirubin (0.2-1.3) mg/dL AST (14-36) U/L ALT (0-35) U/L Alkaline Phosphatase (38-126) U/L NT-Pro-B Natriuret Pep (<300) pg/mL Serum Total Protein (6.3-8.2) g/dL Albumin (3.5-5.0) g/dL Micro Results-Entire Visit: Accuchecks Date 04/25/24 Date 04/25/24 Date 04/25/24 Time 21:00 Time 16:34 Time 11:42 - Radiology Exams Ordered Rad Exams-Entire Visit: Radiology Procedures Category Date Time Status CHEST 1 VIEW (PORTABLE) Stat Exams 04/24/24 15:41 Incomplete CHEST 2 VIEWS (PA AND LAT) Stat Exams 04/24/24 16:42 Completed CHEST WITH CONTRAST [CT] Stat Exams 04/24/24 18:23 Completed - Procedures and Test Procedures and Tests throughout Hospitalization: Therapy Orders & Screens 04/24/24 16:04 Respiratory Therapy Assessment DAILY Comment: 04/24/24 20:41 Respiratory Therapy Consult ONCE Comment: Reason For Exam: 04/24/24 21:02 Incentive Spirometry UD Comment: Oxygen Nasal Cannula 2 lpm Comment: 04/24/24 21:14 RT Screen per Nursing Assess ONCE Comment: Protocol Order Physician Instructions: Greater than 3 points order RT Admission Screen Reason For Exam: Triggered on Admission Diagnosis: pneumonia Diagnosis: pneumonia Pneumonia: Yes Home O2: No Asthma: Yes CHF: No Home CPAP/BIPAP: No Home Nebs/MDI: Yes Total Points: 12 04/25/24 08:48 RT Miscellaneous Order ROUTINE Comment: Physician Instructions: Reason For Exam: wean or qualify, if oxygen needed Diagnosis: pneumonia Discharge Exam General Appearance: no apparent distress Neurologic Exam: alert, oriented x 3, cooperative Eye Exam: PERRL Ears, Nose, Throat Exam: normal ENT inspection Neck Exam: normal inspection Respiratory Exam: normal breath sounds, wheezing Cardiovascular Exam: regular rate/rhythm, normal heart sounds Gastrointestinal/Abdomen Exam: soft, normal bowel sounds Pelvic Exam: deferred Rectal Exam: deferred Back Exam: normal inspection Extremity Exam: normal inspection Skin Exam: normal color Final Diagnosis/Problem List - Final Discharge Diagnosis/Problem (1) Community acquired pneumonia Current Visit: Yes Status: Acute Code(s): J18.9 - PNEUMONIA, UNSPECIFIED ORGANISM (2) HLD (hyperlipidemia) Current Visit: Yes Status: Chronic Code(s): E78.5 - HYPERLIPIDEMIA, UNSPECIFIED (3) Type 2 diabetes mellitus Current Visit: Yes Status: Chronic (4) GERD (gastroesophageal reflux disease) Current Visit: Yes Status: Chronic Code(s): K21.9 - GASTRO-ESOPHAGEAL REFLUX DISEASE WITHOUT ESOPHAGITIS (5) Anxiety Current Visit: Yes Status: Chronic Code(s): F41.9 - ANXIETY DISORDER, UNSPECIFIED - Discharge Disposition: Home, Self-Care Condition: Stable Prescriptions: New Prednisone 20 mg [Deltasone 20 mg] 20 mg PO BID 5 Days #10 tablet Guaifenesin/Codeine 5 ml [Robitussin AC Syrup Unit Dose Cup] 5 ml PO QIDP PRN 7 Days #140 ml MDD 20 ml PRN Reason: Cough cefuroxime axetiL [Cefuroxime] 500 mg PO BID 7 Days #14 tablet Albuterol Sulfate [Proair Digihaler] 1 - 2 puffs IH Q4HPRN PRN 30 Days #1 inh PRN Reason: Shortness Of Breath/Wheezing Doxycycline Hyclate 100 mg [Vibramycin 100 MG] 100 mg PO BID 5 Days #10 tablet Continue Rosuvastatin Calcium 20 mg PO HS Lisinopril 10 mg [Zestril 10 MG] 10 mg PO DAILY Omeprazole 20 mg PO DAILY Escitalopram Oxalate [Lexapro] 10 mg PO DAILY Metformin HCl 500 mg [Glucophage 500 MG] 500 mg PO BIDWM Azelastine HCl 1 spray NS DAILY Instructions: Pneumonia in adults Follow up with: DOCTOR,NO FAMILY [Primary Care Provider] - (FOLLOW-UP WITH YOUR PRIMARY CARE PROVIDER IN 1-2 WEEKS, CALL FOR APPOINTMENT ) Forms: Discharge Instructions
[2024-04-26 05:06] LABS: Absolute Neutrophil Ct (ANC) 7.01 x10^3/uL (1.56-6.13); BASOPHIL % 0.2 % (0.1-1.2); Basophil (Absolute #) 0.02 x10^3/uL (0.01-0.08); Eosinophil % 0.4 % (0.7-5.8); Eosinophil (Absolute #) 0.03 x10^3/uL (0.04-0.36); Hematocrit 37.7 % (34.1-44.9); Hemoglobin 12.1 g/dL (11.2-15.7); IMMATURE GRAN # 0.08 x10^3u/L (0.001-0.031); Lymphocyte (Absolute #) 0.71 x10^3/uL (1.18-3.74); Lymphocytes % 8.6 % (19.3-51.7); Mean Cell Volume 93.8 fL (79.4-94.8); Mean Corpuscular Hemoglobin 30.1 pg (25.6-32.2); Mean Corpuscular Hgb Concent. 32.1 g/dL (32.2-35.5); Mean Platelet Volume 10.8 fL (9.4-12.3); Monocyte (Absolute #) 0.38 x10^3/uL (0.24-0.86); Monocytes % 4.6 % (4.7-12.5); Neutrophil % 85.2 % (34.0-71.1); Platelet Count 242 x10^3/uL (182-369); Red Blood Count 4.02 x10^6/uL (3.93-5.22); Red Cell Distribution Width 13.4 % (11.7-14.4); White Blood Count 8.2 x10^3/uL (3.98-10.04)
[2024-04-26 05:33] LABS: ALBUMIN 4.1 g/dL (3.5-5.0); ANION GAP 14.6 MEQ/L (5-15); BILIRUBIN,TOTAL 0.2 mg/dL (0.2-1.3); Calcium 9.9 mg/dL (8.4-10.2); Creatinine 1 0.69 mg/dL (0.52-1.04); EST GLOMERULAR FILTRATION RATE 101.8 ML/MIN; Potassium 4.6 mmol/L (3.5-5.1); Total Protein 7.2 g/dL (6.3-8.2)
[2024-04-26 11:49] VITALS: BP 129/80; PULSE 65; TEMP 98.4; O2SAT 95
== END 2024-04-26 12:50 | disposition home or self-care (01) ==
LOC: ED 15:29 → MED SURG 20:36
PROVIDERS: ADMIT Student in an Organized Health Care Education/Training Program; ATTEND Student in an Organized Health Care Education/Training Program
DX: J18.9 Pneumonia, unspecified organism (principal); E78.5 Hyperlipidemia, unspecified; E11.9 Type 2 diabetes mellitus without complications; I10 Essential (primary) hypertension; K21.9 Gastro-esophageal reflux disease without esophagitis; F41.9 Anxiety disorder, unspecified; J45.909 Unspecified asthma, uncomplicated; Z79.899 Other long term (current) drug therapy
CPT/HCPCS: 0241U; 36415; 71046; 71260; 80053; 82947; 83036; 83880; 84484; 85025; 93005; 94640; 94760; 96360; 96365; 96374; 99285; G0378; Q3014; J0456; J0696; J2919; J7609; A9270-GY